=== PATIENT | male | born 1995 | race African-American/Black ===

== ENCOUNTER 2024-07-05 11:30 | Outpatient (RCR) | payer OTHER, SELFPAY ==
--- NOTE | 2024-05-26 12:47 | OT.OPPOC ---
Physical, Occupational & Speech Therapy At [facility] Garcia Wheeler [id number] Visit Care Team Role Provider Type Augusto Paiz MD Attending Provider Non-Staff Referring Provider Address: [address] [place] [address], [id number] Occupational Therapy Plan of Care OT Outpatient Adult Evaluation Start: 05/26/24 10:09 Freq: Status: Active Protocol: Document 05/26/24 10:09 VIPIN (Rec: 05/26/24 10:17 VIPIN [id number]) General Information - Adult Visit Information Visit Number 08/15 Plan of Care Dates 05/26/24 - 08/18/24 Insurance Information [employer], 12 visits approved Session Time Visit Start Date 05/26/24 Visit Start Time 10:50 Visit Stop Time 11:30 Setting Treatment Setting Outpatient Care Visit Type Note Type Initial Evaluation Referral Referring Physician Augusto Paiz Reason for Referral Carpal Tunnel Identification Identification Confirmed Yes Identification Confirmed By name Patient Questionnaires Quick Dash- Upper Extremity Quick Dash UE Score 6.8 Quick Dash UE Impairment 1 to 19% Impaired (Score 1-19) Quick Dash- Work and Sports Modules Quick Dash W&S Score Work 25, Sport 0 Quick Dash Work and Sport Impairment 20 to 39% Impaired (Score 20- 39) Wrist/Hand Special Test Median Nerve-Carpal Tunnel Wrist Phalen Test Positive Left,Positive Right Wrist Tinel Test Positive Left,Positive Right Goals Objective Measurements Objective Measurements Carpal Compression Test + R ( 35 sec) + L (13 sec) B + Tinel and Phalen test Insurance Actuary R 104#, 90#, 95# (avg 96. 5#); L 106#, 90#, 85# (avg 93. 7#) Lateral pinch R 26#, L 25# Pincer: R 10#, L 9# 3 jaw: R 12#, L 12# MMT wrist flex and ext B 5/5 Short Term Goals Short Term Goals 1. Pt will be I with initial HEP. 2. Pt will report pain at worse as 3 or less. 3. Pt will increase B dye range tender strength avg to 105# to assist in functional tasks. 4. Pt will participate in [facility] assessment. Appropriate goals to be made following. Care Home Goals Tripe Finisher Goals 1. Pt will be I with advanced HEP and work/activity modification techniques. 2. Pt will report no pain at rest. 3. Pt will increase B dye range tender strength avg to 115# or greater to assist in functional tasks. 4. Pt will report improved perceived functional I with QuickDash Work of 10 or better . Assessment/Plan Assessment Patient Response Excellent Rehabilitation Potential Excellent Impairments Identified Body Mechanics,Functional Activities,Pain,Weakness, Meaningful Activities,Soft Tissue Mobility Treatment Assessment Pt is a 28 yo M who has been referred to skilled OT services due to hx of recurrent B hand discomfort and tingling with prolonged use and symptoms consistent with CTS per MD order. Pt is L hand dominant. Pt works for the [employer]. 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 Pt reports this requires a lot of crawling and manipulating items. Pt reports that he has had pain in B hands for approximately 2 years. He says he believes it began gradually but is now constant. He specifically reports pain on palmar and dorsal aspects of digits 2-5 between his MPs and DIPs. Pt describes pain as ?It?s like an aching pain. They ache non- stop?. Pt reports that he has to pop or shake out his hands approximately once an hour when working. Pt reports that his pain at its least at 1.5/ 10 and 5/10 at worst. Pt reports that he will change his hand position on the steering wheel frequently while driving. 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 Pt denies his hands preventing him from performing this task. Pt reports that he works through the pain to be able to use his hands during all daily tasks. Pt?s medical hx is significant for back pain. He is currently receiving PT for his back and knees on the [employer] [place]. Otherwise no significant medical history. Pt is + B for the carpal compression test, tinel?s, and phalen?s tests. Pt?s notes an increase in symptoms more readily on L than R. Pt denies any numbness or tingling except during special tests. Pt?s primary complaint is constant pain. Pt has decreased dye range tender strength based on age related norms B? ly. Pt reports moderate difficulty performing work tasks because of symptoms and requires frequent readjustment and position changes ( flicking hands, popping, etc). Pt would benefit from skilled OT services to address activity modifications, flossing and neural glide techniques, tendon gliding education, strengthening, and to promote a return to symptom free daily activities. Home Exercise Program Pt issued tendon gliding exercises to initiate. Reviewed with Patient Goals,Progress Being Made,Home Exercise Program Plan Length of treatment (weeks) 12 Plan of Care Start Date 05/26/24 Plan of Care End Date 08/18/24 Treatment Frequency Once a Week Treatment Duration 45 Minutes Therapeutic Contents Client Education,Functional Activities,Home Exercise Program,Joint Protection, Manual Therapy,Education, Neuromuscular Re-Education, Self-Care,Stretching/ Flexibility Activities, Therapeutic Activities, Therapeutic Exercises Modalities As Needed Types of Modalities Cyrotherapy,Ice Massage Patient Instruction Plan of Care,Questions/ Concerns Functional Wrist/Hand Scan Hand Side Sensory Assessment Sensory Profile2 Electronically Signed by: Miroslava Ambriz OT 05/26/24 4593 If you are in agreement with this Plan of Care, please return a signed and dated copy. I have reviewed this Plan of Care and certify that the skilled therapy services above are required to meet the patient?s needs. Physician Signature Date Printed Name and Credentials Clinical Instructor Signature Printed Name and Credentials
--- NOTE | 2024-06-02 08:28 | OT.OP.TRT ---
Visit Care Team Role Provider Type Augusto Paiz MD Attending Provider Non-Staff Referring Provider Specialty: Medical Address: [address] [place] [address], [id number] Email: Occupational Therapy Treatment Note OT Outpatient Treatment Note - Adult Start: 05/26/24 10:09 Freq: Status: Active Protocol: Document 06/02/24 07:26 VIPIN (Rec: 06/02/24 08:27 VIPIN [id number]) OT Outpatient Adult Treatment Note Session Time Visit Start Date 06/02/24 Visit Start Time 07:30 Visit Stop Time 08:15 Visit Information Visit Number 09/15 Plan of Care Dates 05/26/24 - 08/18/24 Insurance Information [facility], 12 visits approve Setting Treatment Setting Outpatient Care Visit Type Note Type Treatment Note - Subjective Identification Type Name Identification Reconciled With Medical Record Observations Pt reports no new symptoms and reports trying to be more aware in general. Pt reports that he was issued splints for B hands, he has agreed to begin wearing them at night. - Objective Objective Measurements 9 hole peg test: L 19 sec, R 24 sec Short Term Goals 1. Pt will be I with initial HEP 2. Pt will report pain at worse as 3 or less. 3. Pt will increase B psychiatrist strength avg to 105# to assist in functional tasks. 4. Pt will participate in [facility] assessment. Appropriate goals to be made following. MET (no new goals indicated) Long-Term Goals 1. Pt will be I with advanced HEP and work/activity modification techniques. 2. Pt will report no pain at rest. 3. Pt will increase B psychiatrist strength avg to 115# or greater to assist in functional tasks. 4. Pt will report improved perceived functional I with QuickDash Work of 10 or better . - Treatment 2 Descriptor Office/work space ergonomics and modification education provided and demonstrated by OT 1 Descriptor Flossing: B longitudinal nerve glide to tolerance B transverse nerve glide to tolerance Exercises 1 Descriptor B tendon glides Manual Therapy Manual Therapy joint mobilization oscillating distraction to each joint digits 2-5 for pain relief; flexor retinaculum stretch - Assessment Patient Response to Treatment Excellent Rehabilitation Potential Excellent Impairments Identified Body Mechanics,Functional Activities,Pain,Weakness, Meaningful Activities,Soft Tissue Mobility Progress Towards Goals Good Progress Assessment of Overall Progress Improving Assessment of Improvement OT educated pt on ergonomic set-up for his work space, especially focused on chair position, hand/wrist positioning, and monitor height. Pt verbalizes understanding and reports being able to implement at least some of these changes. Pt verbalizes that he will start wearing his splints at night. Pt issued several nerve glides/flossing. Pt to perform hourly when at work. Pt verbalizes understanding, OT to review to ensure correct positioning/form. Pt makes progress per established POC. Cont per POC. Reviewed with Patient/Caregiver Progress Being Made,Home Exercise Program Patient/Caregiver Understanding Good - Plan Therapy Recommendations Continue with Current Program Amount of Therapy Recommended 2-3 Months Frequency of Treatment Once a Week Length of Session 45 Minutes Therapeutic Contents Client Education,Functional Activities,Home Exercise Program,Joint Protection, Manual Therapy,Education, Neuromuscular Re-Education, Self-Care,Stretching/ Flexibility Activities, Therapeutic Activities, Therapeutic Exercises, Modalities Modalities As Needed Types of Modalities Cyrotherapy,Ice Massage
--- NOTE | 2024-06-30 13:05 | OT.OP.TRT ---
Visit Care Team Role Provider Type Augusto Paiz MD Attending Provider Non-Staff Referring Provider Specialty: Medical Address: [address] [place] [address], [id number] Email: Occupational Therapy Treatment Note OT Outpatient Treatment Note - Adult Start: 05/26/24 10:09 Freq: Status: Active Protocol: Document 06/30/24 11:31 VIPIN (Rec: 06/30/24 13:05 VIPIN [id number]) OT Outpatient Adult Treatment Note Session Time Visit Start Date 06/30/24 Visit Start Time 11:35 Visit Stop Time 12:15 Visit Information Visit Number 10/13 Plan of Care Dates 05/26/24 - 08/18/24 Insurance Information [facility], 12 visits approve Setting Treatment Setting Outpatient Care Visit Type Note Type Treatment Note - Subjective Identification Type Name Identification Reconciled With Medical Record Observations Pt has not been seen since due to being sick and family illness. Pt reports no change in symptoms. Pt reports he is wearing splints to sleep. Pt reports he has reduced symptoms when he wakes if he's able to tolerate sleeping with them. Pt is moving in mid July. 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 - Objective Objective Measurements Switchman: R 107, 95, 94 (avg 98.7# ) L 75, 80, 85 (avg 80#) Short Term Goals 1. Pt will be I with initial HEP. MET 06/30/24 2. Pt will report pain at worse as 3 or less. 3. Pt will increase B jointer operator strength avg to 105# to assist in functional tasks. 4. Pt will participate in [facility] assessment. Appropriate goals to be made following. MET (no new goals indicated) Office Assistance Goals 1. Pt will be I with advanced HEP and work/activity modification techniques. 2. Pt will report no pain at rest. 3. Pt will increase B jointer operator strength avg to 115# or greater to assist in functional tasks. 4. Pt will report improved perceived functional I with QuickDash Work of 10 or better . - Treatment 1 Descriptor Flossing: B longitudinal nerve glide B transverse nerve glide Exercises 2 Descriptor tputty for hand strengthening red, HEP issued 1 Descriptor B tendon glides Manual Therapy Manual Therapy joint mobilization oscillating distraction to each joint digits 2-5 for pain relief; flexor retinaculum stretch - Assessment Patient Response to Treatment Good Rehabilitation Potential Excellent Impairments Identified Body Mechanics,Functional Activities,Pain,Weakness, Meaningful Activities,Soft Tissue Mobility Progress Towards Goals Good Progress Assessment of Overall Progress Improving Assessment of Improvement OT last treated pt on 06/02. Pt reports he had to cancel multiple appointments due to illness. Pt reports no significant change in symptoms and reports that he has modified his work environment and been performing his HEP regularly. Pt with no significant change in jointer operator strength. OT issued pt tputty and HEP for improved strengthening. OT instructs pt to discontinue if he has increase in symptoms. Cont per established POC. Reviewed with Patient/Caregiver Progress Being Made,Home Exercise Program Patient/Caregiver Understanding Good - Plan Therapy Recommendations Continue with Current Program Amount of Therapy Recommended 2-3 Months Frequency of Treatment Once a Week Length of Session 45 Minutes Therapeutic Contents Client Education,Functional Activities,Home Exercise Program,Joint Protection, Manual Therapy,Education, Neuromuscular Re-Education, Self-Care,Stretching/ Flexibility Activities, Therapeutic Activities, Therapeutic Exercises, Modalities Modalities As Needed Types of Modalities Cyrotherapy,Ice Massage
--- NOTE | 2024-07-05 13:05 | OT.OP.TRT ---
Visit Care Team Role Provider Type Augusto Paiz MD Attending Provider Non-Staff Referring Provider Specialty: Medical Address: [address] [place] [address], [id number] Email: Occupational Therapy Treatment Note OT Outpatient Treatment Note - Adult Start: 05/26/24 10:09 Freq: Status: Active Protocol: Document 07/05/24 11:30 VIPIN (Rec: 07/05/24 10:32 VIPIN [id number]) OT Outpatient Adult Treatment Note Session Time Visit Start Date 07/05/24 Visit Start Time 11:30 Visit Stop Time 12:10 Visit Information Visit Number 11/13 Plan of Care Dates 05/26/24 - 08/18/[address] [facility], 12 visits approve Setting Treatment Setting Outpatient Care Visit Type Note Type Treatment Note - Subjective Identification Type Name Identification Reconciled With Medical Record Observations My hands feel pretty good today. There is no aching going on. Pt reports no pain at start and end of tx. - Objective Objective Measurements Paste Mixer Liquid: R 115, 105, 100 (avg 106 .7#) L 110, 85, 90 (avg 95#) Lateral pinch: R 20# L 22# Pincer pinch: R 12.5# L 14# 3 jaw pinch: R 15.5# L 14# Carpal Compression Test + R 43 seconds, + L 20 seconds Tinel sign + R, + L Phalen test B + 30 seconds QuickDash 18.2 QuickDash Work 25 QuickDashSport 31.25 Short Term Goals 1. Pt will be I with initial HEP. MET 06/30/24 2. Pt will report pain at worse as 3 or less. MET 3. Pt will increase B film sound engineer strength avg to 105# to assist in functional tasks. PARTIAL 07/05/24 4. Pt will participate in [facility] assessment. Appropriate goals to be made following. MET (no new goals indicated) Halfway Goals 1. Pt will be I with advanced HEP and work/activity modification techniques. 2. Pt will report no pain at rest. MET 07/05/24 3. Pt will increase B film sound engineer strength avg to 115# or greater to assist in functional tasks. 4. Pt will report improved perceived functional I with QuickDash Work of 10 or better . - Treatment 1 Descriptor Flossing: B longitudinal nerve glide to tolerance B transverse nerve glide to tolerance Exercises 3 Descriptor strengthenin# wrist flexion wrist extension isometric hold 2 Descriptor tputty for hand strengthening red, HEP issued, reviewed. pt I with HEP 1 Descriptor B tendon glides - Assessment Patient Response to Treatment Fair Rehabilitation Potential Excellent Impairments Identified Body Mechanics,Functional Activities,Pain,Weakness, Meaningful Activities,Soft Tissue Mobility Progress Towards Goals Good Progress,Appropriate for Discharge Assessment of Overall Progress Improving Assessment of Improvement Pt has been seen for eval and three treatments, with approximately 1 month between visit 2 and 3 due to pt's household illness. Pt is preparing to move and is unable to continue with skilled OT services due to move. Pt arrived to therapy without pain or symptoms in either hand. Pt demonstrates I of tputty HEP, tendon glides , and longitudinal nerve glides. Pt require vcs for correct performance of transverse nerve glide. Pt was educated on wrist strengthening progression and was issued HEP for this moving forward. Pt continues to be + for CCT, Tinel, and Phalen's although each of these required increased time before reproducing symptoms vs on eval. Pt demonstrates increased R film sound engineer strength but no significant change on L dominant side. Pt has met STG #2 and partially met STG #3. Pt reports increased perceived disfunction with respect to QuickDash vs on eval, see objective section for details. Pt would benefit from continued skilled OT services; however, pt is preparing for a move and is unable to continue therapy at this time. D/C pt to HEP. Reviewed with Patient/Caregiver Goals,Progress Being Made,Home Exercise Program Patient/Caregiver Understanding Good - Plan Therapy Recommendations Discharge to Home Exercise Program Amount of Therapy Recommended No Further Therapy Therapeutic Contents Client Education,Functional Activities,Home Exercise Program,Joint Protection, Manual Therapy,Education, Neuromuscular Re-Education, Self-Care,Stretching/ Flexibility Activities, Therapeutic Activities, Therapeutic Exercises, Modalities
--- NOTE | 2024-07-05 13:07 | OT.OP.DC ---
Visit Care Team Role Provider Type Augusto Paiz MD Attending Provider Non-Staff Referring Provider Address: [address] [place] [address], [id number] Email: OT Outpatient OT Outpatient Adult Evaluation Start: 05/26/24 10:09 Freq: Status: Active Protocol: Document 05/26/24 10:09 MONTSERRATKRISTINE (Rec: 05/26/24 10:17 [email or web address] [id number]) General Information - Adult Visit Information Visit Number [id number] Plan of Care Dates 05/26/24 - 08/18/24 Insurance Information Prime, 12 visits approved Session Time Visit Start Date 05/26/24 Visit Start Time 10:50 Visit Stop Time 11:30 Setting Treatment Setting Outpatient Care Visit Type Note Type Initial Evaluation Referral Referring Physician Augusto Paiz Reason for Referral Carpal Tunnel Identification Identification Confirmed Yes Identification Confirmed By name Patient Questionnaires Quick Dash- Upper Extremity Quick Dash UE Score 6.8 Quick Dash UE Impairment 1 to 19% Impaired (Score 1-19) Quick Dash- Work and Sports Modules Quick Dash W&S Score Work 25, Sport 0 Quick Dash Work and Sport Impairment 20 to 39% Impaired (Score 20- 39) Wrist/Hand Special Test Median Nerve-Carpal Tunnel Wrist Phalen Test Positive Left,Positive Right Wrist Tinel Test Positive Left,Positive Right Goals Objective Measurements Objective Measurements Carpal Compression Test + R ( 35 sec) + L (13 sec) B + Tinel and Phalen test Travertine Installer R 104#, 90#, 95# (avg 96. 5#); L 106#, 90#, 85# (avg 93. 7#) Lateral pinch R 26#, L 25# Pincer: R 10#, L 9# 3 jaw: R 12#, L 12# MMT wrist flex and ext B 5/5 Short Term Goals Short Term Goals 1. Pt will be I with initial HEP. 2. Pt will report pain at worse as 3 or less. 3. Pt will increase B business intelligence engineer strength avg to 105# to assist in functional tasks. 4. Pt will participate in [facility] assessment. Appropriate goals to be made following. 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 Pt will be I with advanced HEP and work/activity modification techniques. 2. Pt will report no pain at rest. 3. Pt will increase B business intelligence engineer strength avg to 115# or greater to assist in functional tasks. 4. Pt will report improved perceived functional I with QuickDash Work of 10 or better . Assessment/Plan Assessment Patient Response Excellent Rehabilitation Potential Excellent Impairments Identified Body Mechanics,Functional Activities,Pain,Weakness, Meaningful Activities,Soft Tissue Mobility Treatment Assessment Pt is a 28 yo M who has been referred to skilled OT services due to hx of recurrent B hand discomfort and tingling with prolonged use and symptoms consistent with CTS per MD order. Pt is L hand dominant. Pt works for the [employer]. 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 Pt reports this requires a lot of crawling and manipulating items. Pt reports that he has had pain in B hands for approximately 2 years. He says he believes it began gradually but is now constant. He specifically reports pain on palmar and dorsal aspects of digits 2-5 between his MPs and DIPs. Pt describes pain as ?It?s like an aching pain. They ache non- stop?. Pt reports that he has to pop or shake out his hands approximately once an hour when working. Pt reports that his pain at its least at 1.5/ 10 and 5/10 at worst. Pt reports that he will change his hand position on the steering wheel frequently while driving. 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 Pt denies his hands preventing him from performing this task. Pt reports that he works through the pain to be able to use his hands during all daily tasks. Pt?s medical hx is significant for back pain. He is currently receiving PT for his back and knees on the [employer] base. Otherwise no significant medical history. Pt is + B for the carpal compression test, tinel?s, and phalen?s tests. Pt?s notes an increase in symptoms more readily on L than R. Pt denies any numbness or tingling except during special tests. Pt?s primary complaint is constant pain. Pt has decreased business intelligence engineer strength based on age related norms B? ly. Pt reports moderate difficulty performing work tasks because of symptoms and requires frequent readjustment and position changes ( flicking hands, popping, etc). Pt would benefit from skilled OT services to address activity modifications, flossing and neural glide techniques, tendon gliding education, strengthening, and to promote a return to symptom free daily activities. Home Exercise Program Pt issued tendon gliding exercises to initiate. Reviewed with Patient Goals,Progress Being Made,Home Exercise Program Plan Length of treatment (weeks) 12 Plan of Care Start Date 05/26/24 Plan of Care End Date 08/18/24 Treatment Frequency Once a Week Treatment Duration 45 Minutes Therapeutic Contents Client Education,Functional Activities,Home Exercise Program,Joint Protection, Manual Therapy,Education, Neuromuscular Re-Education, Self-Care,Stretching/ Flexibility Activities, Therapeutic Activities, Therapeutic Exercises Modalities As Needed Types of Modalities Cyrotherapy,Ice Massage Patient Instruction Plan of Care,Questions/ Concerns Functional Wrist/Hand Scan Hand Side Sensory Assessment Sensory Profile2 OT Outpatient Treatment Note - Adult Start: 05/26/24 10:09 Freq: Status: Active Protocol: Document 07/05/24 11:30 VIPIN (Rec: 07/05/24 10:32 VIPIN [id number]) OT Outpatient Adult Discharge Note Session Time Visit Start Date 07/05/24 Visit Start Time 11:30 Visit Stop Time 12:10 Visit Information Visit Number [id number]/12 Plan of Care Dates 05/26/24 - 08/18/24 Insurance Information Prime, 12 visits approve Setting Treatment Setting Outpatient Care Visit Type Note Type Discharge Note - Subjective Identification Type Name Identification Reconciled With Medical Record Observations My hands feel pretty good today. There is no aching going on. Pt reports no pain at start and end of tx. - Objective Objective Measurements Travertine Installer: R 115, 105, 100 (avg 106 .7#) L 110, 85, 90 (avg 95#) Lateral pinch: R 20# L 22# Pincer pinch: R 12.5# L 14# 3 jaw pinch: R 15.5# L 14# Carpal Compression Test + R 43 seconds, + L 20 seconds Tinel sign + R, + L Phalen test B + 30 seconds QuickDash 18.2 QuickDash Work 25 QuickDashSport 31.25 Short Term Goals 1. Pt will be I with initial HEP. MET 06/30/24 2. Pt will report pain at worse as 3 or less. MET 3. Pt will increase B business intelligence engineer strength avg to 105# to assist in functional tasks. PARTIAL 07/05/24 4. Pt will participate in [facility] assessment. Appropriate goals to be made following. MET (no new goals indicated) Yeast Fermentation Attendant Goals 1. Pt will be I with advanced HEP and work/activity modification techniques. 2. Pt will report no pain at rest. MET 07/05/24 3. Pt will increase B business intelligence engineer strength avg to 115# or greater to assist in functional tasks. 4. Pt will report improved perceived functional I with QuickDash Work of 10 or better . - - Assessment Patient Response to Treatment Fair Rehabilitation Potential Excellent Impairments Identified Body Mechanics,Functional Activities,Pain,Weakness, Meaningful Activities,Soft Tissue Mobility Progress Towards Goals Good Progress,Appropriate for Discharge Assessment of Overall Progress Improving Assessment of Improvement Pt has been seen for eval and three treatments, with approximately 1 month between visit 2 and 3 due to pt's household illness. Pt is preparing to move and is unable to continue with skilled OT services due to move. Pt arrived to therapy without pain or symptoms in either hand. Pt demonstrates I of tputty HEP, tendon glides , and longitudinal nerve glides. Pt require vcs for correct performance of transverse nerve glide. Pt was educated on wrist strengthening progression and was issued HEP for this moving forward. Pt continues to be + for CCT, Tinel, and Phalen's although each of these required increased time before reproducing symptoms vs on eval. Pt demonstrates increased R business intelligence engineer strength but no significant change on L dominant side. Pt has met STG #2 and partially met STG #3. Pt reports increased perceived disfunction with respect to QuickDash vs on eval, see objective section for details. Pt would benefit from continued skilled OT services; however, pt is preparing for a move and is unable to continue therapy at this time. D/C pt to HEP. Reviewed with Patient/Caregiver Goals,Progress Being Made,Home Exercise Program Patient/Caregiver Understanding Good - Plan Therapy Recommendations Discharge to Home Exercise Program Amount of Therapy Recommended No Further Therapy Therapeutic Contents Client Education,Functional Activities,Home Exercise Program,Joint Protection, Manual Therapy,Education, Neuromuscular Re-Education, Self-Care,Stretching/ Flexibility Activities, Therapeutic Activities, Therapeutic Exercises, Modalities
== END 2024-07-19 13:49 | disposition home or self-care (01) ==
LOC: OT 11:30
PROVIDERS: Referring Provider Student in an Organized Health Care Education/Training Program; Visit Provider Student in an Organized Health Care Education/Training Program
DX: G56.00 Carpal tunnel syndrome, unspecified upper limb (principal)
CPT/HCPCS: 97110; 97140; 97165; 97530